=== PATIENT | male | born 1955 | race Caucasian/White ===

== ENCOUNTER 2017-07-26 17:29 | Emergency (ER) | payer OTHER ==
[2017-07-26] MEDS ORDERED: Ketorolac Tromethamine 30 MG/ML VIAL ONE (18:16)
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
[2017-07-26] MEDS ORDERED: Bacitracin Zinc 1 Packet ONE ×2 (19:06→19:20)
--- OUTSIDE RECORDS SUMMARY | 2017-07-26 20:53 | XMS | Summary of Care ---
:1955 Author Name Reji Alva Address [facility] Unavailable , Care Team Providers Name Role Phone ADELAIDE WILDER Unavailable Unavailable EVELIN POON, JONATHAN MCBRIDE Unavailable Unavailable , Unavailable Unavailable Functional Status Name Dates Details Functional status health issues are not documented Status: Name Dates Details Cognitive status health issues are not documented Status: Problems Name Dates Details Acute pain of right shoulder(719.41, M25.511) Status:Active Hamstring tendinitis of right thigh(727.09, M76.891) Status:Active Traumatic tear of right rotator cuff, initial encounter(840.4, S46.011A) Status:Active Medications Name Dates Details TraMADol HCl - 50 MG Oral Tablet TAKE 1 TO 2 TABLETS EVERY 6 HOURS NEEDED FOR PAIN. Quantity:60 Refills:2 ADELAIDE PAL Start :13-May-2017 Active Allergies and Adverse Reactions Name Dates Details Allergy history not documented Status: Procedures Procedure Dates Details Procedures not documented Immunization Name Dates Details Immunizations not documented Social History Name Dates Details Unknown if ever smoked Vital Signs Date Test Result Details No Known Vitals to report Results Date Description Value Details Results not documented Plan of Care Name Dates Details Planned Observations Planned Goals not documented Planned Encounters Appointment; ADELAIDE WILDER M.D. On:04-Jun-2017 15:15 Interventions Provided Medication ChangesTraMADol HCl - 50 MG Oral Tablet - Start Instructions Name Dates Details Instructions not documented Encounters Appointment; ADELAIDE WILDER M.D. On:28-Mar-2017 15:30 Encounter Diagnosis:Problem not documented Appointment; ADELAIDE WILDER M.D. On:17-Apr-2017 8:30 Encounter Diagnosis:Problem not documented Appointment; EN JUARES On:23-Apr-2017 9:30 Encounter Diagnosis:Problem not documented Appointment; ADELAIDE WILDER M.D. On:13-May-2017 13:45 Encounter Diagnosis:Problem not documented
--- OUTSIDE RECORDS SUMMARY | 2017-07-26 20:53 | XMS ---
:1955 Author Care Team Providers Name Role Phone , Primary Care Provider [phone] Allergies Code Code System Name Reaction Severity Status Onset NKDA Medications Name Status Start Date Stop Date Completed acetaminophen 300 mg-codeine 30 mg tablet 07/09/2017 Completed amoxicillin 875 mg-potassium clavulanate 125 mg tablet 2015 Completed azithromycin 250 mg tablet 01/24/2017 Completed azithromycin 500 mg tablet 07/09/2017 Completed xlajkbnihyzaevl-yuweyhuwtnzhejj-MG 2 mg-30 mg-10 mg/5 08/29/2016 mL syrup Active Bydureon 2 mg/0.65 mL subcutaneous pen injector Not available Inject 2 mg every week by subcutaneous route. Completed cefdinir 300 mg capsule 08/29/2016 Active Depo-Medrol 80 mg/mL suspension for injection Not available Take 80 mg by injection route. Active Invokana 100 mg tablet Not available TAKE ONE TABLET BY MOUTH ONCE DAILY Completed meclizine 25 mg tablet 08/29/2016 Active metformin ER 500 mg 24 hr tablet,extended release Not available Take 2 tablets every day by oral route in the evening. Completed metformin ER 500 mg tablet,extended release 24 hr 07/09/2017 Completed methylprednisolone 4 mg tablets in a dose pack 08/29/2016 Active montelukast 10 mg tablet Not available Completed na 08/29/2016 Completed NovoTwist 32 gauge x 1/5" needle 01/24/2017 Active pravastatin 10 mg tablet Not available Take 1 tablet every day by oral route. Active ramipril 1.25 mg capsule Not available Take 1 capsule every day by oral route for 90 days. Active ramipril 10 mg capsule Not available Completed Victoza 3-Fan 0.6 mg/0.1 mL (18 mg/3 mL) subcutaneous 01/24/2017 pen injector Problems Name Status Onset Date Source Type 2 Diabetes Mellitus Unknown 07/28/2015 History Essential Hypertension Active 07/28/2015 History Diabetes Mellitus without Complication Unknown 03/26/2016 History Type 2 Diabetes Mellitus Active 01/24/2017 Morbid Obesity Active 04/03/2017 Procedures Date Name Performed by 09/30/2016 Orthopedic Surgery Information not available 04/03/2017 XR, Chest, 2 View [facility] Radiology [facility] [address] [place] [address] ([address]) 04/03/2017 Electrocardiogram [facility] [address] [place] [address] (Work [address]) 04/08/2017 XR, Chest, 2 [facility] Radiology [facility] [address] [place], [place] [id number] (Work Place) Lab Results Date Name Specimen Result Interpretation Description Value Range Status Address 04/03/2017 Urinalysis Normal Color yellow yellow Final [facility] Complete, Reflex Family Culture Practice Laboratory: [address], [place] Normal Appearance clear clear Final [facility] Laboratory: [address] [place] Normal Specific 1.020 1.001-1.[address] [facility] [place] [facility] Laboratory: [address], [place] Normal Ph 6.0 5.0-8.0 [facility] Laboratory: [address], [place] ABNORMAL Glucose 1+ negative Final [facility] Laboratory: [address], [place] Normal Bilirubin negative negative [facility] Laboratory: [address], [place] Normal Ketones negative negative [facility] Laboratory: [address], [place] Normal Occult negative negative Final [facility] Blood [facility] Practice Laboratory: [address], [place] Normal Protein negative negative [facility] Laboratory: [address], [place] Normal Nitrite negative negative [facility] Laboratory: [address], [place] Normal Leukocyte negative negative Final [facility] Esterase Family Practice Laboratory: [address], [place] Normal Wbc none seen < or=5 Final [place] /hpf /hpf Family Practice Laboratory: [address], [place] Normal Rbc none seen < or=2 Final [place] /hpf /hpf Family Practice Laboratory: [address], [place] Normal Squamous none seen < or=[address] [facility] Epithelial /hpf /hpf Family Cells Practice Laboratory: [address] Normal Bacteria none seen none seen Final [place] /hpf /hpf Family Practice Laboratory: [address] Normal Hyaline none seen none seen Final [facility] Cast /lpf /lpf Family Practice Laboratory: [address] [facility] 04/03/2017 Culture, Urine Reflexive no culture Final [facility] Urine indicated Family Culture Practice Laboratory: [address] [facility] 04/03/2017 PT/PTT, Plasma Normal Partial 26 sec 22-34 sec Final [facility] Thrombopla Family stin Time, Practice Activated Laboratory: [address] Normal Inr 1.[address] [facility] Family Practice Laboratory: [address] Normal Pt 10.4 sec 9.0-11.[address] [facility] sec Family Practice Laboratory: [address] [facility] 04/03/2017 CBC W/ Auto Diff Wbc 5.66 2.90-10.[address] [facility] x10*3/L 0 [facility] x10*3/L Practice Laboratory: [facility] Cynthia sanaz [address] High Rbc 5.41 3.61-5.[address] [facility] 10*12/L 10*12/L Family Practice Laboratory: [facility] Cynthia sanaz [address] Hemoglobin 15.40 g/dL 12.30-17. Final [facility] 50 g/dL Family Practice Laboratory: [address] [place] [address] Hematocrit 45.8 % 37.1-51.[address] [facility] % Family Practice Laboratory: [facility] [address] Mcv 84.7 fL 79.4-101. Final [facility] 6 fL Family Practice Laboratory: [address] [place] [address] Mch 28.5 pg 26.2-34.[address] [facility] pg Family Practice Laboratory: [address] Mchc 33.6 g/dL 30.2-35.[address] [facility] g/dL Family Practice Laboratory: [address] [facility] RDW-SD 43.0 fL 35.8-49.[address] [facility] fL Family Practice Laboratory: [address] [place] [address] Platelet 252.0 k/uL 118.8-347 [facility] Count .0 k/uL Family Practice Laboratory: [address] Mpv 10.4 fL 8.4-13.4 Final [place] fL Family Practice Laboratory: [address] [place] Neut% 59.8 % 39.1-76.5 Final Village % Family Practice Laboratory: [address] [place] Lymph% 30.6 % 13.8-46.8 Final Village % Family Practice Laboratory: [address] [place] Mon% 7.4 % 4.6-14.4 Final [place] % Family Practice Laboratory: [address] [place] Eos% 1.8 % 0.8-7.3 % Final [facility] Family Practice Laboratory: [address], [place] Baso% 0.4 % 0.2-1.5 % Final [facility] Family Practice Laboratory: Irma[address] [place] Neut# 3.4 0.8-7.[address] [facility] x10*3/L x10*3/L Family Practice Laboratory: [facility] [address] [place] Lymph# 1.7 0.6-3.[address] [facility] x10*3/L x10*3/L Family Practice Laboratory: [address] [place] Mon# 0.4 0.2-1.[address] [facility] x10*3/L x10*3/L Family Practice Laboratory: [address] [place] Eos# 0.10 0.04-0.[address] [facility] x10*3/L x10*3/L Family Practice Laboratory: [address] [place] Baso# 0.02 0.01-0.[address] [facility] x10*3/L x10*3/L Family Practice Laboratory: [address] [place] 04/03/2017 CMP, Serum or Alt 41 U/L 0-55 U/L Final [facility] Plasma Family Practice Laboratory: [address] [facility] Ast 28 U/L 5-34 U/L Final [facility] Family Practice Laboratory: [address] [place] Bun 13.6 mg/dL 8.4-25.[address] [facility] mg/dL Family Practice Laboratory: [facility]ai [facility] Alk Phos 48 unit/L 40-[address] [facility] unit/L Family Practice Laboratory: [address] [facility] High Glucose 140 mg/dL 70-99 Final [place] mg/dL Family Practice Laboratory: [address] [facility] Albumin 4.2 g/dL 3.5-5.0 Final [place] g/dL Family Practice Laboratory: [address] Creatinine 0.88 mg/dL 0.72-1.25 Final [place] mg/dL Family Practice Laboratory: [address] eGFR >60 >60 Final [place] Non-johnathon mL/min/1.7 mL/min/1. Family n Czech [facility] 73m2 Practice Laboratory: [address] [place] [address] Total 0.7 mg/dL 0.2-1.2 Final [place] Bilirubin mg/dL Family Practice Laboratory: [address] eGFR - >60 >[address] [facility] mL/min/1.7 mL/min/1. Family Czech [facility] 73m2 Practice Laboratory: [address] Sodium 138 mEq/L 136-145 Final [place] mEq/L Family Practice Laboratory: [address] Potassium 4.5 mEq/L 3.5-5.1 Final [place] mEq/L Family Practice Laboratory: [address] Chloride 103 mmol/L 98-107 Final [place] mmol/L Family Practice Laboratory: [address] [facility] Total 7.7 g/dL 6.4-8.3 Final [place] Protein g/dL Family Practice Laboratory: [address] Calcium 9.3 mg/dL 8.4-10.2 Final [place] mg/dL Family Practice Laboratory: [address] Co2 23.4 22.0-29.0 Final [place] mmol/L mmol/L Family Practice Laboratory: [address] Anion Gap 12 calc Final [facility] Family Practice Laboratory: [address] [facility] 01/24/2017 CMP, Serum or High Alt 61 U/L 0-55 U/L Final [facility] Plasma Family Practice Laboratory: [address] High Ast 43 U/L 5-34 U/L Final [facility] Family Practice Laboratory: [address] Bun 15 mg/dL 8-26 Final [place] mg/dL Family Practice Laboratory: [address] Alk Phos 54 unit/L 40-150 Final [place] unit/L Family Practice Laboratory: [address] [place] [address], [place] High Glucose 136 mg/dL 70-99 Final [place] mg/dL Family Practice Laboratory: [address] Albumin 4.6 g/dL 3.5-5.0 Final [place] g/dL Family Practice Laboratory: [address] Creatinine 0.81 mg/dL 0.72-1.25 Final [place] mg/dL Family Practice Laboratory: [address] eGFR >60 >60 Final [place] Non-johnathon mL/min/1.7 mL/min/1. Family n Czech [facility] 73m2 Practice Laboratory: [address] Total 0.8 mg/dL 0.2-1.2 Final [place] Bilirubin mg/dL Family Practice Laboratory: [address] eGFR - >60 >60 Final [place] mL/min/1.7 mL/min/1. Family Czech [facility] 73m2 Practice Laboratory: [address] Sodium 140 mEq/L 136-145 Final [place] mEq/L Family Practice Laboratory: [address] Potassium 4.4 mEq/L 3.5-5.1 Final [place] mEq/L Family Practice Laboratory: [address] Chloride 105 mmol/L 98-107 Final [place] mmol/L Family Practice Laboratory: [address] Total 7.7 g/dL 6.4-8.3 Final [place] Protein g/dL Family Practice Laboratory: [address] Calcium 9.5 mg/dL 8.4-10.2 Final [place] mg/dL Family Practice Laboratory: [address] Low Co2 19.5 22.0-29.0 Final [place] mmol/L mmol/L Family Practice Laboratory: [address] Anion Gap 16 calc Final [place] Family Practice Laboratory: [address] [facility] 01/24/2017 HbA1C High A1C W/eag 6.7 % 1.0-5.7 % Final [facility] (Hemoglobin Family a1C), Blood Practice Laboratory: [address] Average 146 mg/dL Final [facility] Blood Family Glucose Practice Laboratory: [address] [place] [address], [place] 08/29/2016 HbA1C High A1C W/eag 6.2 % 1.0-5.7 % Final [facility] (Hemoglobin Family a1C), Blood Practice Laboratory: [address] Average 131.2 Final [place] Blood mg/dL Family Glucose Practice Laboratory: [address] [place] [address], [place] 03/26/2016 HbA1C High A1C W/eag 6.2 % 1.0-5.7 % Final [place] (Hemoglobin Family a1C), Blood Practice Laboratory: [address] Average 131.2 Final [place] Blood mg/dL Family Glucose Practice Laboratory: [address] [place] [address], [place] 03/26/2016 Lipid Panel, Hdl 58.0 mg/dL 40.0-60.[address] [facility] Serum mg/dL Family Practice Laboratory: [address] Triglyceri 43.0 mg/dL 0.0-149.0 Final [place] de mg/dL Family Practice Laboratory: [address] VLDL Calc. 8.6 mg/dL Final [facility] Family Practice Laboratory: [address] cholestero 2.6 mg/dL Final [place] l/HDL Family Ratio Practice Laboratory: [address] non-HDL 95.0 mg/dL 0.0-160.0 Final [place] Cholestero mg/dL Family l Calc. Practice Laboratory: [address] Cholestero 153.0 0.0-199.0 Final Village l mg/dL mg/dL Family Practice Laboratory: [address] LDL Calc. 86.4 mg/dL 0.0-130.0 Final [place] mg/dL Family Practice Laboratory: [address] 03/26/2016 CMP, Serum or Alt 46.0 U/L 0.0-55.[address] [facility] Plasma U/L Family Practice Laboratory: [address] High Ast 36.0 U/L 5.0-34.0 Final [place] U/L Family Practice Laboratory: [address] Bun 11.0 mg/dL 8.0-26.0 Final [place] mg/dL Family Practice Laboratory: [address] [place] [address] Alk Phos 44.0 40.0-150. Final [place] unit/L 0 unit/L Family Practice Laboratory: [address] [facility] High Glucose 161.0 70.0-99.0 Final [place] mg/dL mg/dL Family Practice Laboratory: [address] Albumin 4.3 g/dL 3.5-5.0 Final [place] g/dL Family Practice Laboratory: [address] Creatinine 0.8 mg/dL 0.7-1.3 Final [place] mg/dL Family Practice Laboratory: [address] eGFR 99.3 >60.[address] [facility] Non-johnathon mL/min/1.7 mL/min/1. Family n Czech 2 73m2 Practice Laboratory: [address] [facility] Total 0.9 mg/dL 0.2-1.2 Final [place] Bilirubin mg/dL Family Practice Laboratory: [address] eGFR - 127.7 >60.[address] [facility] mL/min/1.7 mL/min/1. Family Czech 2 73m2 Practice Laboratory: [address] [facility] Sodium 141.0 137.0-144 Final [place] mEq/L .0 mEq/L Family Practice Laboratory: [address] [place] [address] Potassium 4.2 mEq/L 3.5-5.0 Final [place] mEq/L Family Practice Laboratory: [address] Chloride 104.0 101.0-110 Final [place] mmol/L .0 mmol/L Family Practice Laboratory: [address] [facility] Total 7.6 g/dL 6.4-8.3 Final [place] Protein g/dL Family Practice Laboratory: [address] [facility] Calcium 9.1 mg/dL 8.4-10.2 Final [place] mg/dL Family Practice Laboratory: [address] Co2 27 mmol/L 22-29 Final [place] mmol/L Family Practice Laboratory: [address] Anion Gap 10.3 calc [address] [facility] Family Practice Laboratory: [address] Urinalysis, Color yellow [facility] Dip[facility] Color Village: [address], [place] Color clear [facility] Appearance Village: [address], [place] Color [facility] Glucose Village: [address], [place] Color negative [facility] Bilirubin Village: [address], [place] Color negative [facility] Ketones Village: [address] [facility] [address], [place] Color 1.015 [facility] Specific Village: [place] [address], [place] Color negative [facility] Blood Village: [address], [place] Color PH 6.0 [facility] Village: [address], [place] Color negative [facility] Protein Village: [address] [facility] [address], [place] Color 0.2 [facility] Urobilinog Village: en [address], [place] Color negative [facility] Nitrites Village: [address] [facility] [address], [place] Color negative [facility] Leukocytes Village: [address] [facility] [address], [place] Electrocardiogra No [facility] m observatio Village: n [address] recorded. [facility] [address], [place] Albumin:creatini Type Urine 30 mg/L [facility] ne Ratio, Urine [place]rol[place]: [place] [address] [address] [facility] [address], [place] Type Urine 300 mg/dL [facility] Creatinine t West: [address] [address] [facility] [address], [place] Type A:C <30 mg/g [facility] Ratio (Normal) t West: [address] [address] [facility] [address], [place] Past Encounters 07/09/2017 Seasonal Allergic Rhinitis; Type 2 Diabetes Mellitus; Mixed Hyperlipidemia Due to Type 2 Diabetes Mellitus; Essential Hypertension; Viral Screening Armand Wallace MD: [address], [address], [place] [address], Ph. 04/03/2017 Pre-surgery Evaluation; Traumatic Rupture of Rotator Cuff; Immunization; Morbid Obesity; Type 2 Diabetes Mellitus; Essential Hypertension Rojas Jones MD: [address], [address], [place] [address], Ph. 01/24/2017 Type 2 Diabetes Mellitus; Essential Hypertension; Seasonal Allergic Rhinitis Armand Wallace MD: [address] [facility], [address], [place] [address], Ph. 08/29/2016 Diabetic Complication; Essential Hypertension; Seasonal Allergic Rhinitis; Hyperlipidemia Armand Wallace MD: [address], [address], [place] [address], Ph. Social History Smoking Status Never Smoker Vaccine List Vaccine Type Tdap 04/03/20170.5 mL Plan of Care Reminders Provider Appointments None recorded. Lab None recorded. Referral None recorded. Procedures None recorded. Surgeries None recorded. Imaging None recorded. Vitals 07/09/2017 03:30PM Work In Same Day Height Weight BMI Blood Pressure 6 ft 1 in 311.4 lbs 41.1kg/m2 127/64mm[Hg] 04/03/2017 11:15AM Est Patient Height Weight BMI Blood Pressure 6 ft 1 in 311.6 lbs 41.1kg/m2 128/84mm[Hg] 01/24/2017 02:00PM Est Patient Height Weight BMI Blood Pressure 6 ft 0.5 in 308 lbs 41.2kg/m2 134/80mm[Hg] 08/29/2016 08:30AM Est Patient Height Weight BMI Blood Pressure 6 ft 0.5 in 301 lbs 40.3kg/m2 111/74mm[Hg] 03/26/2016 Height Weight BMI Blood Pressure 6 ft 2 in 311 lbs 39.93kg/m2 128/75mm[Hg] 07/28/2015 Height Weight BMI Blood Pressure 6 ft 2 in 341.6 lbs 43.86kg/m2 158/90mm[Hg]
--- OUTSIDE RECORDS SUMMARY | 2017-07-26 20:53 | XMS | Summary of Care ---
:1955 Author Name Alva Schmid Address Unavailable Unavailable , Care Team Providers Name Role Phone ADELAIDE WILDER Unavailable Unavailable EVELIN POON, JONATHAN MCBRIDE Unavailable Unavailable Functional Status Name Dates Details Functional status health issues are not documented Status: Name Dates Details Cognitive status health issues are not documented Status: Problems Name Dates Details Acute pain of right shoulder(719.41, M25.511) Status:Active Hamstring tendinitis of right thigh(727.09, M76.891) Status:Active Traumatic tear of right rotator cuff, initial encounter(840.4, S46.011A) Status:Active Medications Name Dates Details Medications not documented Allergies and Adverse Reactions Name Dates Details [...] Details Planned Observations Planned Goals not documented Instructions Name Dates Details Instructions not documented Encounters Appointment; ADELAIDE WILDER M.D. On:28-Mar-2017 15:30 Encounter Diagnosis:Problem not documented Appointment; ADELAIDE WILDER M.D. On:17-Apr-2017 8:30 Encounter Diagnosis:Problem not documented Appointment; EN JUARES On:23-Apr-2017 9:30 Encounter Diagnosis:Problem not documented Appointment; ADELAIDE WILDER M.D. On:13-May-2017 13:45 Encounter Diagnosis:Problem not documented
--- OUTSIDE RECORDS SUMMARY | 2017-07-26 20:53 | XMS | Summary of Care ---
:1955 Author Name ADELAIDE WILDER Address [facility] Unavailable , Care Team [...] Details Planned Observations Planned Goals not documented Interventions Provided Medication ChangesTraMADol HCl - 50 [...]
--- OUTSIDE RECORDS SUMMARY | 2017-07-26 20:53 | XMS ---
:1955 Author Care Team Providers Name Role Phone , Primary Care Provider [phone] Allergies Code Code System Name Reaction Severity Status Onset NKDA Medications Name Status Start Date Stop Date Active acetaminophen 300 mg-codeine 30 mg tablet Not available Completed amoxicillin 875 mg-potassium clavulanate 125 mg tablet 2015 Completed azithromycin 250 mg tablet 01/24/2017 Completed azithromycin 500 mg tablet 08/29/2016 Completed tnzrbyozzdwxsja-avyphrwvmnjvjhj-PV 2 mg-30 mg-10 mg/5 08/29/2016 mL syrup Active Bydureon 2 mg/0.65 mL subcutaneous pen injector Not available Inject 2 mg every week by subcutaneous route. Completed cefdinir 300 mg capsule 08/29/2016 Active Invokana 100 mg tablet Not available Completed meclizine 25 mg tablet 08/29/2016 Active metformin ER 500 mg 24 hr tablet,extended release Not available Take 2 tablets every day by oral route in the evening. Completed metformin ER 500 mg tablet,extended release 24 hr 01/24/2017 Completed methylprednisolone 4 mg tablets in a dose pack 08/29/2016 Active montelukast 10 mg tablet Not available Completed na 08/29/2016 Completed NovoTwist 32 gauge x 1/5" needle 01/24/2017 Active pravastatin 10 mg tablet Not available Take 1 tablet every day by oral route. Active ramipril 1.25 mg capsule Not available Active ramipril 10 mg capsule Not available Completed Victoza 3-Fan 0.6 mg/0.1 mL (18 mg/3 mL) subcutaneous 01/24/2017 pen injector Problems Name Status Onset Date Source Type 2 Diabetes Mellitus Unknown 07/28/2015 History Essential Hypertension Active 07/28/2015 History Diabetes Mellitus without Complication Unknown 03/26/2016 History Type 2 Diabetes Mellitus Active 01/24/2017 Morbid Obesity Active 04/03/2017 Procedures Date Name Performed by 04/03/2017 XR, Chest, 2 View [facility] Radiology [address] [place] [address] (Work Place) 04/03/2017 Electrocardiogram [facility] [address] [place] [address] (Work Place) Lab Results Date Name Specimen Result Interpretation Description Value Range Status Address 04/03/2017 Culture, Urine Reflexive no culture Final [place] Urine Culture indicated [facility] [address] [facility]/24/2017 CMP, Serum or High Alt 61 U/L 0-55 Final [facility] Plasma U/L Family Practice Laboratory: [address] High Ast 43 U/L 5-34 Final [facility] U/L Family Practice Laboratory: [address] Bun 15 mg/dL 8-26 Final [facility] mg/dL Family Practice Laboratory: [address] Alk Phos 54 unit/L 40-150 Final [facility] unit/L Family Practice Laboratory: [address] High Glucose 136 mg/dL 70-99 Final [facility] mg/dL Family Practice Laboratory: [address] Albumin 4.6 g/dL 3.5-5.0 Final [place] g/dL Family Practice Laboratory: [address] Creatinine 0.81 mg/dL 0.72-1. Final Village 25 Family mg/dL Practice Laboratory: [address] eGFR >60 >60 Final Village Non- mL/min/1.7 mL/min/ Family [place] 3m2 1.73m2 Practice Laboratory: [address] Total 0.8 mg/dL 0.2-1.2 Final [facility] Bilirubin mg/dL Family Practice Laboratory: [address] eGFR - >60 >60 Final Village [place] mL/min/1.7 mL/min/ Family 3m2 1.73m2 Practice Laboratory: [address] Sodium 140 mEq/L 136-145 Final [place] mEq/L Family Practice Laboratory: [address] Potassium 4.4 mEq/L 3.5-5.1 Final [place] mEq/L Family Practice Laboratory: [address] Chloride 105 mmol/L 98-107 Final [place] mmol/L Family Practice Laboratory: [address] Total Protein 7.7 g/dL 6.4-8.3 Final [facility] g/dL Family Practice Laboratory: [address] Calcium 9.5 mg/dL 8.4-10. Final [facility] 2 mg/dL [facility] [facility] [address] Low Co2 19.5 22.0-29 Final [facility] mmol/L .0 Family mmol/L Practice Laboratory: [address] Anion Gap 16 calc Final [facility] Family Practice Laboratory: [address] [place] [address], [place] 01/24/2017 HbA1C High A1C W/eag 6.7 % 1.0-5.7 Final [facility] (Hemoglobin % Family a1C), Blood [facility]: [address] [facility] [address] Average Blood 146 mg/dL Final [facility] Glucose Family Practice Laboratory: [address] [place] [address], [place] 08/29/2016 HbA1C High A1C W/eag 6.2 % 1.0-5.7 Final [facility] (Hemoglobin % Family a1C), Blood Practice Laboratory: [address] Average Blood 131.2 Final [facility] Glucose mg/dL Family Practice Laboratory: [address] [place] [address], [place] 03/26/2016 HbA1C High A1C W/eag 6.2 % 1.0-5.7 Final [facility] (Hemoglobin % Family a1C), Blood Practice Laboratory: [address] Average Blood 131.2 Final [facility] Glucose mg/dL Family Practice Laboratory: [address] [place] [address], [place] 03/26/2016 Lipid Panel, Hdl 58.0 mg/dL 40.0-60 Final Village Serum .0 Family mg/dL Practice Laboratory: [address] Triglyceride 43.0 mg/dL 0.0-149 Final Village .0 Family mg/dL Practice Laboratory: [address] [facility] [address] VLDL Calc. 8.6 mg/dL Final [facility] Family Practice Laboratory: [address] [facility] [address] cholesterol/HD 2.6 mg/dL Final Village L Ratio Family [facility] Laboratory: [address] [facility] [address] non-HDL 95.0 mg/dL 0.0-160 Final [facility] Cholesterol .0 Family Calc. mg/dL Practice Laboratory: [address] Cholesterol 153.0 0.0-199 Final [place] mg/dL .0 Family mg/dL Practice Laboratory: [address] LDL Calc. 86.4 mg/dL 0.0-130 Final Village .0 Family mg/dL [facility] Laboratory: [facility] [facility] 03/26/2016 CMP, Serum or Alt 46.0 U/L 0.0-55. Final [facility] Plasma 0 U/L Family Practice Laboratory: [address] High Ast 36.0 U/L 5.0-34. Final [facility] 0 U/L Family Practice Laboratory: [address] Bun 11.0 mg/dL 8.0-26. Final [facility] 0 mg/dL Family Practice Laboratory: [address] Alk Phos 44.0 40.0-15 Final [place] unit/L 0.0 Family unit/L Practice Laboratory: [address] High Glucose 161.0 70.0-99 Final [place] mg/dL .0 Family mg/dL Practice Laboratory: [address] Albumin 4.3 g/dL 3.5-5.0 Final [place] g/dL Family Practice Laboratory: [address] Creatinine 0.8 mg/dL 0.7-1.3 Final [place] mg/dL Family Practice Laboratory: [address] eGFR 99.3 >60.0 Final Village Non- mL/min/1.7 mL/min/ Family [place] 3m2 1.73m2 Practice Laboratory: [address] Total 0.9 mg/dL 0.2-1.2 Final [place] Bilirubin mg/dL Family Practice Laboratory: [address] eGFR - 127.7 >60.0 Final Village [place] mL/min/1.7 mL/min/ Family 3m2 1.73m2 Practice Laboratory: [address] Sodium 141.0 137.0-1 Final Village mEq/L 44.0 Family mEq/L Practice Laboratory: [address] Potassium 4.2 mEq/L 3.5-5.0 Final [place] mEq/L Family Practice Laboratory: [address], [place] Chloride 104.0 101.0-1 Final Village mmol/L 10.0 [facility] mmol/L Practice Laboratory: [address], [place] Total Protein 7.6 g/dL 6.4-8.3 Final [facility] g/dL Family Practice Laboratory: [address], [place] Calcium 9.1 mg/dL 8.4-10. Final Village 2 mg/dL Family Practice Laboratory: [address], [place] Co2 27 mmol/L 22-29 Final [facility] mmol/L Family Practice Laboratory: [address], [place] Anion Gap 10.3 calc Final [facility] Family Practice Laboratory: [address], [place] Urinalysis, Color Color yellow [facility]stick [facility] [address], [place] Color clear [facility] Appearance [facility]: [facility], [place] Color Glucose 100 [facility] [address], [place] Color negative [facility] Bilirubin Village: [address] [facility] [address], [place] Color Ketones negative [facility] Village: [address] [facility] [address], [place] Color Specific 1.015 [facility] [place] Village: [address] [facility] [address], [place] Color Blood negative [facility]: [facility] [address], [place] Color PH 6.0 [facility] Village: [address] [facility] [address], [place] Color Protein negative [facility] Village: [address] [facility] [address], [place] Color 0.2 [facility] Urobilinogen [facility]: [facility] [facility] [address], [place] Color Nitrites negative [facility] Village: [address] [facility] [address], [place] Color negative [facility] Leukocytes Village: [address] [facility] [address], [place] Electrocardiogra No observation [facility] m recorded. Village: [address] [facility] [address], [place] Albumin:creatini Type Urine 30 mg/L [facility] ne Ratio, Urine Microlalbumin t West: [address] [facility], [place] Type Urine 300 mg/dL [facility] Creatinine t West: [address] [facility] [address] [place] [address] Type A:C Ratio <30 mg/g [facility] (Normal) t West: [address] [facility] [address], [place] Past Encounters 04/03/2017 Pre-surgery Evaluation; Traumatic Rupture of Rotator Cuff; Immunization; Morbid Obesity; Type 2 Diabetes Mellitus; Essential Hypertension Rojas Jones MD: [address] [facility] [address], [place] [address], Ph. 01/24/2017 Type 2 Diabetes Mellitus; Essential Hypertension; Seasonal Allergic Rhinitis Armand Wallace MD: [id number] [address] [facility] [address], [place] [address], Ph. 08/29/2016 Diabetic Complication; Essential Hypertension; Seasonal Allergic Rhinitis; Hyperlipidemia Armand Wallace MD: [address] [address] [facility] [address], [place] [address], Ph. Social History Smoking Status Never Smoker Vaccine List Vaccine Type Tdap 04/03/20170.5 mL Plan of Care Reminders Provider Appointments None recorded. Lab None recorded. Referral None recorded. Procedures None recorded. Surgeries None recorded. Imaging None recorded. Vitals 04/03/2017 11:15AM Est Patient Height Weight BMI [...]
--- OUTSIDE RECORDS SUMMARY | 2017-07-26 20:54 | XMS ---
:1955 Author Care Team Providers Name Role Phone , Primary Care Provider [phone] Allergies Code Code System Name Reaction Severity Status Onset NKDA Medications Name Status Start Date Stop Date Completed amoxicillin 875 mg-potassium clavulanate 125 mg 08/29/2016 tablet Completed azithromycin 250 mg tablet 01/24/2017 Completed azithromycin 500 mg tablet 08/29/2016 Completed dwszwgolcjtvkau-vnxhphswihpohca-SZ 2 mg-30 mg-10 08/29/2016 mg/5 mL syrup Active Bydureon 2 mg/0.65 mL [...] mg tablets in a dose pack 08/29/2016 Completed na 08/29/2016 Completed NovoTwist 32 gauge x 1/5" needle 01/24/2017 Active pravastatin 10 mg tablet Not available Take 1 tablet every day by oral route. Active ramipril 1.25 mg capsule Not available Take 1 capsule every day by oral route for 90 days. Active ramipril 10 mg capsule 01/24/2017 Not available Take 1 capsule every day by oral route. Active Singulair 10 mg tablet Not available Take 1 tablet every day by oral route. Completed Victoza 3-Fan 0.6 mg/0.1 mL (18 mg/3 mL) 01/24/2017 subcutaneous pen injector Problems Name Status Onset Date Source Type 2 Diabetes Mellitus Unknown 07/28/2015 History Essential Hypertension Active 07/28/2015 History Diabetes Mellitus without Complication Unknown 03/26/2016 History Type 2 Diabetes Mellitus Active 01/24/2017 Procedures None recorded. Lab Results Date Name Specimen Result Interpretation Description Value Range Status Address 08/29/2016 HbA1C High A1C W/eag 6.2 % 1.0-5.7 % Final [facility] Family (Hemoglobin Practice a1C), Blood Laboratory ([id number]): [address] [place] [address], [place] Average Blood 131.2 Final [facility] Family Glucose mg/dL Practice Laboratory ([id number]): [address] [place] [address], [place] 03/26/2016 HbA1C High A1C W/eag 6.2 % 1.0-5.7 % Final [facility] Family (Hemoglobin Practice a1C), Blood Laboratory ([id number]): [address] [place] [address], [place] Average Blood 131.2 Final [facility] Family Glucose mg/dL Practice Laboratory ([id number]): [address] [place] [address], [place] 03/26/2016 Lipid Panel, Hdl 58.0 40.0-60.0 Final [facility] Family Serum mg/dL mg/dL Practice Laboratory ([id number]): [address] [place] [address], [place] Triglyceride 43.0 0.0-149.0 Final [facility] Family mg/dL mg/dL Practice Laboratory ([id number]): [address] [place] [address], [place] VLDL Calc. 8.6 Final [facility] Family mg/dL Practice Laboratory ([id number]): [address] [place] [address], [place] cholesterol/HDL 2.6 Final [facility] Family Ratio mg/dL Practice Laboratory ([id number]): [address] [facility] [place] [address], [place] non-HDL 95.0 0.0-160.0 Final [facility] Family Cholesterol mg/dL mg/dL Practice Calc. Laboratory ([id number]): [address] [place] [address], [place] Cholesterol 153.0 0.0-199.0 Final [facility] Family mg/dL mg/dL Practice Laboratory ([id number]): [address] [place] [address], [place] LDL Calc. 86.4 0.0-130.0 Final [facility] Family mg/dL mg/dL Practice Laboratory ([id number]): [address] [place] [address], [place] 03/26/2016 CMP, Serum or Alt 46.0 0.0-55.0 Final [facility] Family Plasma U/L U/L Practice Laboratory ([id number]): [address], [place] High Ast 36.0 5.0-34.0 Final [facility] Family U/L U/L Practice Laboratory ([id number]): [address], [place] Bun 11.0 8.0-26.0 Final [facility] Family mg/dL mg/dL Practice Laboratory ([id number]): [address], [place] Alk Phos 44.0 40.0-150. Final [facility] Family unit/L 0 unit/L Practice Laboratory ([id number]): [address], [place] High Glucose 161.0 70.0-99.0 Final [facility] Family mg/dL mg/dL Practice Laboratory ([id number]): [address], [place] Albumin 4.3 3.5-5.0 Final [facility] Family g/dL g/dL Practice Laboratory ([id number]): [address] [place] [address], [place] Creatinine 0.8 0.7-1.3 Final [facility] Family mg/dL mg/dL Practice Laboratory ([id number]): [address], [place] eGFR 99.3 >60.0 Final [facility] Family Non- mL/min mL/min/1. Practice Chinese /1.73m 73m2 Laboratory 2 ([id number]): [address], [place] Total Bilirubin 0.9 0.2-1.2 Final [facility] Family mg/dL mg/dL Practice Laboratory ([id number]): [address] [facility] [place], [place] eGFR - 127.7 >60.0 Final [facility] Family Chinese mL/min mL/min/1. Practice /1.73m 73m2 Laboratory 2 ([id number]): [address], [place] Sodium 141.0 137.0-144 Final [facility] Family mEq/L .0 mEq/L Practice Laboratory ([id number]): [address] [place], [place] Potassium 4.2 3.5-5.0 Final [facility] Family mEq/L mEq/L Practice Laboratory ([id number]): [address] [facility] [place], [place] Chloride 104.0 101.0-110 Final [facility] mmol/L .0 mmol/L Practice Laboratory ([id number]): [address], [place] Total Protein 7.6 6.4-8.3 Final [facility] g/dL g/dL Practice Laboratory ([id number]): [address], [place] Calcium 9.1 8.4-10.2 Final [facility] mg/dL mg/dL Practice Laboratory ([id number]): [address], [place] Co2 27 22-29 Final [facility] mmol/L mmol/L Practice Laboratory ([id number]): [address], [place] Anion Gap 10.3 Final [facility] calc Practice Laboratory ([id number]): [address], [place] Albumin:creat Type Urine 30 [facility] inine Ratio, Microlalbumin mg/L West: [address] U[address], [place] Type Urine 300 [facility] Creatinine mg/dL West: [address] [address], [place] Type A:C Ratio <30 [facility] mg/g West: [address] (Kendra [address]) [address], [place] Past Encounters 01/24/2017 Type 2 Diabetes Mellitus; Essential Hypertension; Seasonal Allergic Rhinitis Armand Wallace MD: [id number] [facility], [address] [address], [place]. 08/29/2016 Diabetic Complication; Essential Hypertension; Seasonal Allergic Rhinitis; Hyperlipidemia Armand Wallace MD: [address], [address], [place] [address], Ph. Social History Smoking Status Never Smoker Vaccine List None recorded. Plan of Care Reminders Provider Appointments None recorded. Lab None recorded. Referral None recorded. Procedures None recorded. Surgeries None recorded. Imaging None recorded. Vitals 01/24/2017 02:00PM Est Patient Height Weight BMI Blood Pressure 6 ft 0.5 in 308 lbs 41.2 134/80 08/29/2016 08:30AM Est Patient Height Weight BMI Blood Pressure 6 ft 0.5 in 301 lbs 40.3 111/74 03/26/2016 Height Weight BMI Blood Pressure 6 ft 2 in 311 lbs 39.93 128/75 07/28/2015 Height Weight BMI Blood Pressure 6 ft 2 in 341.6 lbs 43.86 158/90
--- OUTSIDE RECORDS SUMMARY | 2017-07-26 20:54 | XMS ---
:1955 Author Care Team Providers Name Role Phone , Primary Care Provider [phone] Allergies Code Code System Name Reaction Severity Status Onset NKDA Medications Name Status Start Date Stop Date Active acetaminophen 300 mg-codeine 30 mg tablet Not available Completed amoxicillin 875 mg-potassium clavulanate 125 mg tablet 2015 Completed azithromycin 250 mg tablet 01/24/2017 Completed azithromycin 500 mg tablet 08/29/2016 Completed nqmjuhockxeahsc-roxfqgpzwaysxvr-LY 2 mg-30 mg-10 mg/5 08/29/2016 mL syrup [...] Performed by 04/03/2017 XR, Chest, 2 View [facility] Radiology [address] [place] [address] (Work Place) 04/03/2017 Electrocardiogram [facility] [place] [address] [place] [address] (Work Place) Lab Results Date Name Specimen Result Interpretation Description Value Range Status Address 01/24/2017 CMP, Serum or High Alt 61 U/L 0-55 Final [place] Plasma U/L Family Practice Laboratory: [address] [facility] High Ast 43 U/L 5-34 Final [place] U/L Family Practice Laboratory: [address] [place] [address], [place] Bun 15 mg/dL 8-26 Final [place] mg/dL Family Practice Laboratory: [address] Alk Phos 54 unit/L 40-15 Final [place] 0 Family unit/ Practice L Laboratory: [address] [facility] High Glucose 136 mg/dL 70-99 Final [place] mg/dL Family Practice Laboratory: [address] [facility] Albumin 4.6 g/dL 3.5-5 Final [place] .0 Family g/dL Practice Laboratory: [address] [facility] Creatinine 0.81 0.72- Final [place] mg/dL 1.25 Family mg/dL Practice Laboratory: [address] [facility] eGFR >60 >60 Final [place] Non- mL/min/1. mL/mi Family Turk[place] 73m2 n/1.7 Practice 3m2 Laboratory: [address] [place] Total 0.8 mg/dL 0.2-1 Final [place] Bilirubin .2 Family mg/dL Practice Laboratory: [address] [facility] eGFR - >60 >60 Final [place] Turkmen mL/min/1. mL/mi Family 73m2 n/1.7 Practice 3m2 Laboratory: [address] Sodium 140 mEq/L 136-1 Final [place] 45 Family mEq/L Practice Laboratory: [address] Potassium 4.4 mEq/L 3.5-5 Final [place] .1 Family mEq/L Practice Laboratory: [address] [facility] Chloride 105 98-10 Final [place] mmol/L 7 Family mmol/ Practice L Laboratory: [address] Total Protein 7.7 g/dL 6.4-8 Final [place] .3 Family g/dL Practice Laboratory: [address] Calcium 9.5 mg/dL 8.4-1 Final [place] 0.2 Family mg/dL [facility]: [facility] [facility] [address] Low Co2 19.5 22.0- Final [place] mmol/L 29.0 Family mmol/ Practice L Laboratory: [address] [place] [address] Anion Gap 16 calc Final Village Family Practice Laboratory: [address] [place] [address], [place] 01/24/2017 HbA1C (Hemoglobin High A1C W/eag 6.7 % 1.0-5 Final [place] a1C), Blood .7 % Family Practice Laboratory: [address] [place], [place] [address]sanaz [address] Average Blood 146 mg/dL Final [place] Glucose Family Practice Laboratory: [address] [place], [place] [address]san[place] [address], [place] 08/29/2016 HbA1C (Hemoglobin High A1C W/eag 6.2 % 1.0-5 Final [place] a1C), Blood .7 % Family Practice Laboratory: [address] [place], [place] [address]san[place] [address] Average Blood 131.2 Final [place] Glucose mg/dL Family Practice Laboratory: [address] [place] [address], [place] 03/26/2016 HbA1C (Hemoglobin High A1C W/eag 6.2 % 1.0-5 Final [place] a1C), Blood .7 % Family Practice Laboratory: [address] Average Blood 131.2 Final [place] Glucose mg/dL Family Practice Laboratory: [address] [place], [place] [address]sanaz [place] [address], [place] 03/26/2016 Lipid Panel, Serum Hdl 58.0 40.0- Final [place] mg/dL 60.0 Family mg/dL Practice Laboratory: [address] Triglyceride 43.0 0.0-1 Final [place] mg/dL 49.0 Family mg/dL Practice Laboratory: [address] VLDL Calc. 8.6 mg/dL Final [place] Family Practice Laboratory: [address] cholesterol/HD 2.6 mg/dL Final [place] L Ratio Family Practice Laboratory: [address] non-HDL 95.0 0.0-1 Final [place] Cholesterol mg/dL 60.0 Family Calc. mg/dL Practice Laboratory: [address] Cholesterol 153.0 0.0-1 Final [place] mg/dL 99.0 Family mg/dL Practice Laboratory: [address] [facility] LDL Calc. 86.4 0.0-1 Final [place] mg/dL 30.0 Family mg/dL Practice Laboratory: [address] [place] 03/26/2016 CMP, Serum or Alt 46.0 U/L 0.0-5 Final [place] Plasma 5.0 Family U/L Practice Laboratory: [address] [facility] High Ast 36.0 U/L 5.0-3 Final [place] 4.0 Family U/L Practice Laboratory: [address] [facility] Bun 11.0 8.0-2 Final [place] mg/dL 6.0 Family mg/dL Practice Laboratory: [address] Alk Phos 44.0 40.0- Final [place] unit/L 150.0 Family unit/ Practice L Laboratory: [address] [facility] High Glucose 161.0 70.0- Final [place] mg/dL 99.0 Family mg/dL Practice Laboratory: [address] Albumin 4.3 g/dL 3.5-5 Final [place] .0 Family g/dL Practice Laboratory: [address] Creatinine 0.8 mg/dL 0.7-1 Final [place] .3 Family mg/dL Practice Laboratory: [address] [facility] eGFR 99.3 >60.0 Final [place] Non- mL/min/1. mL/mi Family Turk[place] 73m2 n/1.7 Practice 3m2 Laboratory: [address] [facility] Total 0.9 mg/dL 0.2-1 Final [place] Bilirubin .2 Family mg/dL Practice Laboratory: [address] eGFR - 127.7 >60.0 Final [place] Turkmen mL/min/1. mL/mi Family 73m2 n/1.7 Practice 3m2 Laboratory: [address] [place] Sodium 141.0 137.0 Final [place] mEq/L -144. Family 0 Practice mEq/L Laboratory: [address] [place] [address] Potassium 4.2 mEq/L 3.5-5 Final Village .0 Family mEq/L Practice Laboratory: [address] Chloride 104.0 101.0 Final [place] mmol/L -110. Family 0 Practice mmol/ Laboratory: L [address], [place] Total Protein 7.6 g/dL 6.4-8 Final Village .3 Family g/dL Practice Laboratory: [address], [place] Calcium 9.1 mg/dL 8.4-1 Final [place] 0.2 Family mg/dL Practice Laboratory: [address], [place] Co2 27 mmol/L 22-29 Final [place] mmol/ Family L Practice Laboratory: [address], [place] Anion Gap 10.3 calc Final [facility] Family Practice Laboratory: [address], [place] Urinalysis, Color Color yellow [facility] Dipstick Village: [address], [place] Color clear [facility] Appearance Village: [address], [place] Color Glucose 100 [facility] Village: [address], [place] Color negative [facility] Bilirubin Village: [address] [facility] [address], [place] Color Ketones negative [facility] Village: [address] [facility] [address], [place] Color Specific 1.015 [facility] [place] Village: [address] [facility] [address], [place] Color Blood negative [facility] Village: [address], [place] Color PH 6.0 [facility] Village: [address], [place] Color Protein negative [facility] Village: [address], [place] Color 0.2 [facility] Urobilinogen Village: [address], [place] Color Nitrites negative [facility] Village: [address] [facility] [address], [place] Color negative [facility] Leukocytes [facility]: [facility] [address], [place] Electrocardiogram No observation [facility] recorded. Village: [address], [place] Albumin:creatinine Type Urine 30 mg/L [facility] Ratio, Urine Microlalbumin t West: [address] [address], [place] Type Urine 300 mg/dL [facility] Creatinine t West: [address] [facility] 615, [place] Type A:C Ratio <30 mg/g [facility] (Normal) t West: [address] [facility], [place] Past Encounters 04/03/2017 Pre-surgery Evaluation; Traumatic Rupture of Rotator Cuff; Immunization; Morbid Obesity; Type 2 Diabetes Mellitus; Essential Hypertension Rojas Jones MD: [address] [facility] [address], [place] [address], Ph. 01/24/2017 Type 2 Diabetes Mellitus; Essential Hypertension; Seasonal Allergic Rhinitis Armand Wallace MD: [address] [address] [facility], [address], [place] [address], Ph. 08/29/2016 Diabetic Complication; Essential Hypertension; Seasonal Allergic Rhinitis; Hyperlipidemia Armand Wallace MD: [address] [address] [facility], [address], [place] [address], Ph. Social History Smoking Status Never Smoker [...]
--- OUTSIDE RECORDS SUMMARY | 2017-07-26 20:54 | XMS | Clinical Summary ---
:1955 Author Organization [facility] Address [address] [place] [address] Phone Care Team Providers Name Role Phone Sarayemily Armand Primary Care Provider tel Allergies No Known Allergies Current Medications Prescription Sig. Disp. Refills Start Date End Date Status montelukast (SINGULAIR) 10 Take 10 mg by Active mg tablet mouth nightly. pravastatin (PRAVACHOL) 10 Take 10 mg by Active MG tablet mouth nightly. metFORMIN (GLUCOPHAGE) Take 1,000 mg by Active 1,000 mg tablet mouth 2 (two) times a day with meals. buPROPion (WELLBUTRIN) 75 Take 75 mg by Active MG tablet mouth 2 (two) times a day. canagliflozin (INVOKANA) Take 100 mg by Active 100 mg tablet tablet mouth daily. Active Problems Problem Noted Date Right shoulder pain 03/11/2017 Family History Medical History Relation Name Comments Cancer Father Cancer Mother Relation Name Status Comments Father lung cancer Mother Alive prostate Social History Tobacco Use Types Packs/Day Years Used Date Never Smoker Alcohol Use Drinks/Week oz/Week Comments Yes Sex Assigned at Date Recorded Not on file Last Filed Vital Signs Vital Sign Reading Time Taken Blood Pressure - - Pulse - - Temperature - - Respiratory Rate - - Oxygen Saturation - - Inhaled Oxygen Concentration - - Weight 134 kg (295 lb) 03/11/2017 8:50 AM CDT Height 188 cm (6' 2") 03/11/2017 8:50 AM CDT Body Mass Index 37.88 03/11/2017 8:50 AM CDT Plan of Treatment Health Maintenance Due Date Last Done Comments COLONOSCOPY 2007 INFLUENZA VACCINE 04/30/2017 ZOSTER VACCINE 2017 Results Not on filefrom Last 3 Months Insurance Payer Benefit Plan / Group Subscriber ID Type Phone Address EMILIE PH[facility] [id number] PPO Home: [id number] [facility] [phone] [address]
--- OUTSIDE RECORDS SUMMARY | 2017-07-26 20:54 | XMS ---
:1955 Author Care Team Providers Name Role Phone , Primary Care Provider [phone] Allergies Code Code System Name Reaction Severity Status Onset NKDA Medications Name Status Start Date Stop Date Completed amoxicillin 875 mg-potassium clavulanate 125 mg 08/29/2016 tablet Completed azithromycin 250 mg tablet 01/24/2017 Completed azithromycin 500 mg tablet 08/29/2016 Completed dlhyjaydktoiwsb-syqmudfrowhfbjn-LF 2 mg-30 mg-10 08/29/2016 mg/5 mL syrup [...] A1C W/eag 6.2 % 1.0-5.7 % Final [facility] (Hemoglobin Practice a1C), Blood Laboratory ([id number]): [address] [place] [address], [place] Average Blood 131.2 Final [facility] Glucose mg/dL Practice Laboratory ([id number]): [address] [place] [address], [place] 03/26/2016 HbA1C High A1C W/eag 6.2 % 1.0-5.7 % Final [facility] (Hemoglobin Practice a1C), Blood Laboratory ([id number]): [address] [place] [address], [place] Average Blood 131.2 Final [facility] Glucose mg/dL Practice Laboratory ([id number]): [address] [place] [address], [place] 03/26/2016 Lipid Panel, Hdl 58.0 40.0-60.0 Final [facility] Serum mg/dL mg/dL Practice Laboratory ([id number]): [address] [place] [address], [place] Triglyceride 43.0 0.0-149.0 Final [facility] mg/dL mg/dL Practice Laboratory ([id number]): [address] [place] [address], [place] VLDL Calc. 8.6 Final [facility] mg/dL Practice Laboratory ([id number]): [address] [place] [address], [place] cholesterol/HDL 2.6 Final [facility] Ratio mg/dL Practice Laboratory ([id number]): [address] [facility] [place] [address], [place] non-HDL 95.0 0.0-160.0 Final [facility] Cholesterol mg/dL mg/dL Practice Calc. Laboratory ([id number]): [address] [place] [address], [place] Cholesterol 153.0 0.0-199.0 Final [facility] mg/dL mg/dL Practice Laboratory ([id number]): [address] [place] [address], [place] LDL Calc. 86.4 0.0-130.0 Final [facility] mg/dL mg/dL Practice Laboratory ([id number]): [address] [place] [address], [place] 03/26/2016 CMP, Serum or Alt 46.0 0.0-55.0 Final [facility] Plasma U/L U/L Practice Laboratory ([id number]): [address], [place] High Ast 36.0 5.0-34.0 Final [facility] U/L U/L Practice Laboratory ([id number]): [address], [place] Bun 11.0 8.0-26.0 Final [facility] mg/dL mg/dL Practice Laboratory ([id number]): [address], [place] Alk Phos 44.0 40.0-150. Final [facility] unit/L 0 unit/L Practice Laboratory ([id number]): [address], [place] High Glucose 161.0 70.0-99.0 Final [facility] mg/dL mg/dL Practice Laboratory ([id number]): [address], [place] Albumin 4.3 3.5-5.0 Final [facility] g/dL g/dL Practice Laboratory ([id number]): [address] [place] [address], [place] Creatinine 0.8 0.7-1.3 Final [facility] mg/dL mg/dL Practice Laboratory ([id number]): [address], [place] eGFR 99.3 >60.0 Final [facility] Non- mL/min mL/min/1. Practice [place] /1.73m 73m2 Laboratory 2 ([id number]): [address], [place] Total Bilirubin 0.9 0.2-1.2 Final [facility] mg/dL mg/dL Practice Laboratory ([id number]): [address] [facility] Aruna, [place] eGFR - 127.7 >60.0 Final [facility] [place] mL/min mL/min/1. Practice /1.73m 73m2 Laboratory 2 ([id number]): [address], [place] Sodium 141.0 137.0-144 Final [facility] mEq/L .0 mEq/L Practice Laboratory ([id number]): [address] [place]una, [place] Potassium 4.2 3.5-5.0 Final [facility] mEq/L mEq/L Practice Laboratory ([id number]): [address] [facility] Aruna, [place] Chloride 104.0 101.0-[address] [facility] mmol/L .0 mmol/L Practice Laboratory ([id number]): [address], [place] Total Protein 7.6 6.4-8.[address] [facility] g/dL g/dL Practice Laboratory ([id number]): [address], [place] Calcium 9.1 8.4-10.[address] [facility] mg/dL mg/dL Practice Laboratory ([id number]): [address], [place] Co2 27 22-[address] [facility] mmol/L mmol/L Practice Laboratory ([id number]): [address], [place] Anion Gap 10.[address] [facility] calc Practice Laboratory ([id number]): [address], [place] Albumin:creat Type Urine 30 [facility] inine Ratio, Microlalbumin mg/L West: [address] U[address], [place] Type Urine 300 [facility] Creatinine mg/dL West: [address] [address], [place] Type A:C Ratio <30 [facility] mg/g West: [id number] (Kendra [address] l) [address], [place] Past Encounters 01/24/2017 Type 2 Diabetes Mellitus; Essential Hypertension; Seasonal Allergic Rhinitis Armand Wallace MD: 35689 [address] [facility], [address] [address], Ph. 08/29/2016 Diabetic Complication; Essential Hypertension; Seasonal Allergic Rhinitis; Hyperlipidemia Armand Wallace MD: [address], [address], [place] [address], Ph. Social History Smoking Status Never Smoker [...]
--- OUTSIDE RECORDS SUMMARY | 2017-07-26 20:54 | XMS | Clinical Summary ---
:1955 Author Organization [facility] Address [address] [place] [phone] Phone Care Team Providers Name Role Phone , Primary Care Provider Unavailable Allergies Not on File Current Medications Prescription Sig. Disp. Refills Start Date End Date Status liraglutide 0.6 Inject subcutaneously Active mg/0.1 mL (18 mg/3 daily. mL) PnIjIndications:type 2 diabetes mellitus PIOGLITAZONE HCL Take by mouth daily. Active (ACTOS ORAL) Active Problems Not on file Social History Tobacco Use Types Packs/Day Years Used Date Never Smoker Alcohol Use Drinks/Week oz/Week Comments Yes occasional Sex Assigned at Date Recorded Not on file Last Filed Vital Signs Vital Sign Reading Time Taken Blood Pressure 146/71 07/09/2014 8:54 AM CDT Pulse 66 07/09/2014 8:54 AM CDT Temperature 36.9 C (98.4 F) 07/09/2014 8:54 AM CDT Respiratory Rate 18 07/09/2014 8:54 AM CDT Oxygen Saturation 97% 07/09/2014 8:54 AM CDT Inhaled Oxygen Concentration - - Weight 145.2 kg (320 lb) 07/09/2014 8:54 AM CDT Height 188 cm (6' 2") 07/09/2014 8:54 AM CDT Body Mass Index 41.09 07/09/2014 8:54 AM CDT Plan of Treatment Not on file Results Not on filefrom Last 3 Months
== END 2017-07-26 19:35 | disposition home or self-care (01) ==
LOC: ERS 17:29
DX: M25.572 Pain in left ankle and joints of left foot (principal); S90.512A Abrasion, left ankle, initial encounter; E11.9 Type 2 diabetes mellitus without complications; Z79.84 Long term (current) use of oral hypoglycemic drugs; Z79.899 Other long term (current) drug therapy; V89.2XXA Person injured in unspecified motor-vehicle accident, traffic, initial encounter
CPT/HCPCS: 96374; J1885